=== PATIENT | female | born 1985 | race African-American/Black ===

== ENCOUNTER 2016-08-29 20:01 | Inpatient (IN) | payer SELFPAY ==
[~2016-08-29] VITALS: Ht 162.6 cm; Wt 68.5 kg
[2016-08-29] MEDS ORDERED: ONDANSETRON HCL 4MG/2ML VIAL IV STA (23:38)
[2016-08-29] MEDS ORDERED: MORPHINE SULFATE 4 MG/ML CPJ (NOT FOR IM USE) IV STA (23:38)
[2016-08-29] MEDS ORDERED: SODIUM CHLORIDE 0.9% 1,000 ML IV ONE (23:55)
[2016-08-29 23:56] LABS: BASOPHILS % 0.4 % (0.0-2.0); EOSINOPHILS % 0.2 % (0.0-5.0); HEMATOCRIT. 40.8 % (36.0-48.0); HEMOGLOBIN. 14.2 g/dL (12.0-16.0); LYMPHOCYTES % 9.3 % (20.0-50.0); MEAN CORPUSCULAR HEMOGLOBIN 33.1 pg (28.0-32.0); MEAN CORPUSCULAR VOLUME 95.2 fL (81.0-99.0); MEAN PLATELET VOLUME 9.4 fl (7.4-10.4); MONOCYTES % 4.8 % (2.0-8.0); NEUTROPHILS % 85.3 % (40.0-76.0); PLATELET 235 x1000/uL (130-400); RED BLOOD CELL COUNT 4.29 mill/uL (4.2-5.4); RED CELL DISTRIBUTION WIDTH 14.1 % (11.6-14.6)
[2016-08-30 00:05] LABS: INR 1.1; PROTHROMBIN TIME 11.7 sec
[2016-08-30 00:07] LABS: HCG SCREEN NEGATIVE
[2016-08-30 00:11] LABS: CARBON DIOXIDE 25 mEq/L (21-32); CHLORIDE 100 mEq/L (98-107)
[2016-08-30 00:27] LABS: CLARITY URINE CLEAR (CLEAR); COLOR URINE DARK YELLOW (YELLOW); GLUCOSE URINE NEGATIVE (NEGATIVE); KETONES URINE 4+ (NEGATIVE); LEUKOCYTE ESTERASE URINE TRACE (NEGATIVE); NITRITE URINE NEGATIVE (NEGATIVE); OCCULT BLOOD URINE 2+ (NEGATIVE); PH URINE 6.5 (4.5-8.0); PROTEIN URINE NEGATIVE (NEGATIVE); SPECIFIC GRAVITY URINE 1.021 (1.005-1.030)
[2016-08-30] MEDS ORDERED: MORPHINE SULFATE 4 MG/ML CPJ (NOT FOR IM USE) IV ONE (03:15)
[2016-08-30 08:50] VITALS: BP 110/65
[2016-08-30] MEDS ORDERED: DOCUSATE SODIUM 100MG CAPSULE PO PRN (09:00)
[2016-08-30] MEDS ORDERED: GUAIFENESIN 200MG/10ML SUGAR FREE UDC PO PRN (09:00)
[2016-08-30] MEDS ORDERED: TRAMADOL 50MG TABLET PO PRN (09:00)
[2016-08-30] MEDS ORDERED: CLONIDINE 0.1MG TABLET PO PRN (09:00)
[2016-08-30] MEDS ORDERED: DIPHENHYDRAMINE 50MG/ML VIAL IV PRN (09:00)
[2016-08-30] MEDS ORDERED: MAGNESIUM/ALUMINUM HYDROXIDE/SIMETHICONE 30ML UDC PO PRN (09:00)
[2016-08-30] MEDS ORDERED: ACETAMINOPHEN 325MG TABLET PO PRN (09:00)
[2016-08-30] MEDS ORDERED: LORAZEPAM 2MG/ML CPJ IV PRN (09:00)
[2016-08-30] MEDS ORDERED: IPRATROPIUM/ALBUTEROL 0.5-3(2.5)MG/3ML NEB INH PRN (09:00)
[2016-08-30] MEDS ORDERED: NA PHOS,M-B/NA PHOS,DI-BA ENEMA 118ML PR PRN (09:00)
[2016-08-30] MEDS ORDERED: KETOROLAC 15MG/ML VIAL IV PRN (09:00)
[2016-08-30] MEDS: PANTOPRAZOLE SODIUM 40 MG/VIAL IV SCH (09:38)
[2016-08-30 11:16] VITALS: BP 110/65
[2016-08-30] MEDS: DEXT 5%/0.45% NACL 1000ML 1,000 ML IV SCH ×2 (11:37→17:52)
[2016-08-30 12:00] VITALS: BP 97/67
[2016-08-30 16:11] VITALS: BP 101/74
[2016-08-30] MEDS: PIPERACILLIN/TAZ 3.375G PREMIX 50 ML IV SCH (17:50)
[2016-08-30] MEDS: ONDANSETRON HCL 4MG/2ML VIAL IV PRN (17:51)
[2016-08-30] MEDS: MORPHINE SULFATE 2 MG/ML CPJ (NOT FOR IM USE) IV PRN (18:21)
[2016-08-30 20:00] VITALS: BP 94/65
[2016-08-30] MEDS ORDERED: ZOLPIDEM TARTRATE 5MG TABLET PO PRN (21:00)
[2016-08-30] MEDS: LEVOFLOXACIN 500MG PREMIX 100 ML IV SCH (23:23)
[2016-08-31] VITALS: BP 95/66
[2016-08-31] MEDS: PIPERACILLIN/TAZ 3.375G PREMIX 50 ML IV SCH ×5 (01:09→23:24)
[2016-08-31 04:00] VITALS: BP 103/76
[2016-08-31] MEDS: DEXT 5%/0.45% NACL 1000ML 1,000 ML IV SCH ×2 (06:38→21:41)
[2016-08-31] MEDS: MORPHINE SULFATE 2 MG/ML CPJ (NOT FOR IM USE) IV PRN (07:33)
[2016-08-31] MEDS: ONDANSETRON HCL 4MG/2ML VIAL IV PRN (07:33)
[2016-08-31 08:00] VITALS: BP 125/77
[2016-08-31] MEDS: PANTOPRAZOLE SODIUM 40 MG/VIAL IV SCH (08:34)
[2016-08-31] MEDS ORDERED: METOCLOPRAMIDE HCL 10MG/2ML VIAL IV SCH (09:45)
[2016-08-31 15:30] VITALS: BP 108/65
[2016-08-31] MEDS ORDERED: METOCLOPRAMIDE HCL 10MG/2ML VIAL ONE ×2 (16:28→16:34)
[2016-08-31] MEDS ORDERED: ONDANSETRON HCL 4MG/2ML VIAL ONE ×2 (16:28→16:34)
[2016-08-31] MEDS ORDERED: DEXAMETHASONE 4MG/ML 1ML VIAL ONE (16:34)
[2016-08-31] MEDS ORDERED: HYDROMORPHONE HCL/PF 2MG/ML (OR) ONE (16:35)
[2016-08-31] MEDS ORDERED: MIDAZOLAM HCL 5 MG/5 ML VIAL ONE ×2 (16:35→16:46)
[2016-08-31] MEDS ORDERED: IOHEXOL-300 100 ML BOTTLE ONE (16:37)
[2016-08-31] MEDS ORDERED: PROPOFOL 200MG/20ML VIAL IV ONE (16:39)
[2016-08-31] MEDS ORDERED: HYDROMORPHONE HCL/PF 2MG/ML CPJ IV PRN (16:45)
[2016-08-31] MEDS ORDERED: MEPERIDINE HCL/PF 25MG/ML CPJ IV PRN (16:45)
[2016-08-31] MEDS ORDERED: ONDANSETRON HCL 4MG/2ML VIAL IV PRN (16:45)
[2016-08-31] MEDS ORDERED: LABETALOL HCL 20MG/4ML CARPUJECT IV PRN (16:45)
[2016-08-31 20:00] VITALS: BP 95/59
[2016-08-31 22:00] VITALS: BP 106/67
[2016-08-31] MEDS: LEVOFLOXACIN 500MG PREMIX 100 ML IV SCH (22:06)
[2016-09-01 04:00] VITALS: BP 96/68
[2016-09-01] MEDS: PIPERACILLIN/TAZ 3.375G PREMIX 50 ML IV SCH ×2 (05:08→11:36)
[2016-09-01 08:00] VITALS: BP 95/66
[2016-09-01] MEDS: PANTOPRAZOLE SODIUM 40 MG/VIAL IV SCH (09:06)
[2016-09-01 11:14] LABS: BASOPHILS % 0.6 % (0.0-2.0); EOSINOPHILS % 0.4 % (0.0-5.0); HEMATOCRIT. 36.7 % (36.0-48.0); HEMOGLOBIN. 12.6 g/dL (12.0-16.0); LYMPHOCYTES % 17.5 % (20.0-50.0); MEAN CORPUSCULAR HEMOGLOBIN 33.2 pg (28.0-32.0); MEAN CORPUSCULAR VOLUME 96.5 fL (81.0-99.0); MEAN PLATELET VOLUME 9.8 fl (7.4-10.4); MONOCYTES % 10.9 % (2.0-8.0); NEUTROPHILS % 70.6 % (40.0-76.0); PLATELET 224 x1000/uL (130-400); RED CELL DISTRIBUTION WIDTH 14.1 % (11.6-14.6)
[2016-09-01] MEDS: DEXT 5%/0.45% NACL 1000ML 1,000 ML IV SCH (11:37)
[2016-09-01 11:39] LABS: CARBON DIOXIDE 28 mEq/L (21-32); CHLORIDE 101 mEq/L (98-107)
[2016-09-01 12:00] VITALS: BP 95/71
[2016-09-01] MEDS ORDERED: POTASSIUM CHLORIDE 20MEQ TABLET SR PO NR (12:00)
[2016-09-01] MEDS ORDERED: POTASSIUM CHLORIDE INJ 40 MEQ in DEXT 5% WATER 500 ML IV NR (14:00)
[2016-09-01 15:52] VITALS: BP 102/65
[2016-09-01 18:22] VITALS: BP 108/80
[2016-09-02] MEDS ORDERED: FAMOTIDINE 20MG/2ML VIAL IV SCH (09:00)
== END 2016-09-01 18:40 | disposition home or self-care (01) ==
LOC: ER 23:59 → 8WST 08-30 06:07 → EDBEDREQ 08-30 06:18 → EDBEDREQTM 08-30 06:18 → ENRESERV 08-30 07:09
PROVIDERS: ADMIT Internal Medicine; ATTEND Internal Medicine
PROC: 0F798DZ Dilation of Common Bile Duct with Intraluminal Device, Via Natural or Artificial Opening Endoscopic (ICD-10-PCS; principal; 2016-08-31 16:00)
DX: K80.71 Calculus of gallbladder and bile duct without cholecystitis with obstruction (principal); N39.0 Urinary tract infection, site not specified; R74.0 Nonspecific elevation of levels of transaminase and lactic acid dehydrogenase [LDH]
CPT/HCPCS: 36415; 74330; 80053; 81001; 81025; 83690; 84703; 85025; 85610; 96361; 96374; 96375; 96376; 99285; C1726; C1769; C2625; C9113; J1100; J1170; J1885; J1956; J2250; J2270; J2405; J2543; J2704; J2765; J3480; J7030; J7060; Q9967